=== PATIENT | female | born 1990 | race Caucasian/White ===

== ENCOUNTER 2016-08-26 19:00 | Emergency (ER) | payer OTHER ==
[~2016-08-26] VITALS: Ht 170.2 cm; Wt 111.0 kg
[2016-08-26] MEDS: KETOROLAC TROMETHAMINE 60 MG/2 ML VIAL IM ONE ×2 (20:34→20:36)
[2016-08-26 20:38] VITALS: BP 127/83
== END 2016-08-26 20:41 | disposition home or self-care (01) ==
LOC: EMS 19:01
DX: M62.838 Other muscle spasm (principal)
CPT/HCPCS: 99281; J1885

== ENCOUNTER 2021-06-15 18:33 | Emergency (ER) | payer OTHER ==
[~2021-06-15] VITALS: Ht 170.2 cm; Wt 86.4 kg
[2021-06-15] MEDS ORDERED: IBUPROFEN 600 MG TABLET PO ONE (20:15)
[2021-06-15] MEDS ORDERED: DEXAMETHASONE SOD PHOS 4 MG/ML 5 ML VIAL IM ONE (20:15)
[2021-06-15 20:42] LABS: COVID AG,FIA SOURCE NASOPHARYNGEAL
[2021-06-15 21:23] VITALS: BP 132/71
== END 2021-06-15 21:25 | disposition home or self-care (01) ==
LOC: EMS 18:39
DX: J02.8 Acute pharyngitis due to other specified organisms (principal); B97.89 Other viral agents as the cause of diseases classified elsewhere; Z20.822 Contact with and (suspected) exposure to COVID-19
CPT/HCPCS: 87426; 87430; 96372; 99283; J1100

== ENCOUNTER 2022-05-27 19:39 | Emergency (ER) | payer OTHER ==
[~2022-05-27] VITALS: Ht 170.2 cm; Wt 95.5 kg
[2022-05-27 21:33] VITALS: BP 120/77
[2022-05-27] MEDS ORDERED: GUAIFDM PO (22:28)
[2022-05-27] MEDS ORDERED: ACET-2080 PO (22:28)
[2022-05-27] MEDS ORDERED: IBUP-1554 PO (22:28)
[2022-05-27] MEDS ORDERED: GENTAMICIN SULFATE 0.3% OPHTHALMIC SOLUTION 5 ML OU ONE (22:30)
== END 2022-05-27 22:35 | disposition home or self-care (01) ==
LOC: EMS 19:44
DX: H10.9 Unspecified conjunctivitis (principal); J06.9 Acute upper respiratory infection, unspecified; J02.8 Acute pharyngitis due to other specified organisms
CPT/HCPCS: 99283